=== PATIENT | male | born 2000 ===

== ENCOUNTER 2022-01-28 15:25 | Emergency (ER) | payer OTHER ==
[~2022-01-28] VITALS: Ht 170.2 cm; Wt 74.8 kg
[2022-01-28 15:30] VITALS: BP 124/71
== END 2022-01-28 15:42 | disposition left against medical advice (07) ==
LOC: EDH 15:25
DX: R51.9 Headache, unspecified (principal); Z53.21 Procedure and treatment not carried out due to patient leaving prior to being seen by health care provider